=== PATIENT | male | born 1985 | race Caucasian/White ===

== ENCOUNTER 2016-10-18 22:12 | Emergency (ER) | payer SELFPAY ==
[~2016-10-18] VITALS: Ht 180.3 cm; Wt 87.1 kg
[~2016-10-18 22:12] MED LIST: Z.0.NO CURRENT MEDS
[2016-10-18 22:49] VITALS: BP 122/76; PULSE 68; RESP 18; TEMP 97.9; O2SAT 97
[2016-10-19] MEDS ORDERED: CYCL1TAB29 PO (11:37)
[2016-10-19] MEDS ORDERED: NAPR500T PO (11:37)
== END 2016-10-19 01:55 | disposition left against medical advice (07) ==
LOC: PHED 22:12
DX: M54.5 Low back pain (principal)
CPT/HCPCS: 99281

== ENCOUNTER 2016-10-19 11:06 | Emergency (ER) | payer SELFPAY ==
[~2016-10-19] VITALS: Ht 177.8 cm; Wt 86.5 kg
[2016-10-19 11:13] VITALS: BP 141/79; PULSE 67; RESP 18; TEMP 98.2; O2SAT 99
[2016-10-19] MEDS ORDERED: CYCL1TAB29 PO (11:37)
[2016-10-19] MEDS ORDERED: NAPR500T PO (11:37)
--- NOTE | 2016-10-19 11:39 | PD ---
HPI Chief Complaint: Back/ Neck Pain or Injury Time Seen by Provider: 11:37 Travel History International Travel<30 days: No Contact w/Intl Traveler<30days: No Traveled to known affect area: No History of Present Illness HPI 31-year-old male presents to the emergency department for evaluation of mid to lower back pain for 1 week. Patient states that one week ago he loaded plants from the ground onto his truck all day and the pain began the day after this activity. States that it is a muscle soreness that is aggravated with standing for long periods of time, bending and moving. States that he has been taking ibuprofen with minimal improvement of symptoms. He took one dose of Norflex that he had at home before he went to bed, is unsure whether this helped his symptoms are not. He states he has had some improvement in the pain however is concerned that it has persisted this long. He denies any numbness or tingling, weakness, saddle anesthesia, bowel or bladder incontinence, fever, chills, nausea, vomiting. No other complaints. PFSH Past Medical History Medical History: Denies Significant Hx Diminished Hearing: No Tetanus Vaccination: Unknown Influenza Vaccination: No Past Surgical History Surgical History: No Previous Surgery Social History Alcohol Use: Yes (weekends) Tobacco Use: No Substance Use: No Allergies-Medications (Allergen,Severity, Reaction): Coded Allergies: No Known Allergies (Verified , 10/19/16) Reported Meds & Prescriptions Reported Meds & Active Scripts Active Naproxen 500 Mg Tab 500 Mg PO BID 7 Days Flexeril (Cyclobenzaprine HCl) 10 Mg Tab 10 Mg PO TID 5 Days Review of Systems Except as stated in HPI: all other systems reviewed are Neg Physical Exam Narrative GENERAL: Well-nourished and well-developed pleasant male patient in no acute distress who is nontoxic appearing. SKIN: Warm and dry. HEAD: Normocephalic and atraumatic. EYES: No injection, drainage, or hyphema noted. PERRLA. EOMI. ENT: No nasal drainage noted. Oropharynx is clear. NECK: Supple and the trachea is midline. CARDIOVASCULAR: Regular rate and rhythm. RESPIRATORY: Breath sounds are equal bilaterally with no accessory muscle use, wheezing, rhonchi, or crackles. MUSCULOSKELETAL: No obvious deformities, swelling, cyanosis, or ecchymosis is present throughout the upper and lower extremities. Patient has full range of motion without any signs of neurovascular compromise. Strength 5/5 upper and lower extremities equal bilaterally. BACK: Tenderness to palpation of bilateral thoracic and lumbar paraspinal muscles. No midline spinous tenderness to palpation. NEUROLOGICAL: Awake, alert, and oriented. Normal speech and gait. Cranial nerves are grossly intact. Data Data Last Documented VS Vital Signs Date Time Temp Pulse Resp B/P Pulse Ox O2 Delivery O2 Flow Rate FiO2 10/19/16 11:13 98.2 67 18 141/79 99 MDM Medical Decision Making Medical Screen Exam Complete: Yes Emergency Medical Condition: Yes Differential Diagnosis Muscle strain versus muscle spasm versus discogenic pain Narrative Course 31-year-old male presents to the emergency department for evaluation of mid to lower back pain after lifting and bending last week. Patient is afebrile, vital signs are stable. No midline bony point tenderness. No traumatic injury. No focal neurologic deficits. I don't see any indication for imaging at this time. This is a muscle strain. Patient will be treated with muscle relaxers and NSAIDs. Advised follow-up with his PCP. Patient verbalizes understanding and agreement with treatment plan. Diagnosis Primary Impression: Muscle strain Referrals: Primary Care Physician Patient Instructions: General Instructions, Muscle Strain (ED) Additional Instructions: Take medications as prescribed with food and a full glass of water. Follow-up with your Primary Care Physician. Return to the ED for any acute worsening of symptoms. Med/Other Pt SpecificInfo: Prescription(s) given Scripts Naproxen 500 Mg [id number] Mg PO BID 7 Days Ref 0 Prov:Rogelio De Jesus MD 10/19/16 Cyclobenzaprine (Flexeril)10 Mg Tab10 Mg PO TID 5 Days Ref 0 Prov:Rogelio De Jesus MD 10/19/16 Disposition: 01 DISCHARGE HOME Condition: Stable Bernadine Christie Oct 19, 2016 11:39
== END 2016-10-19 11:51 | disposition home or self-care (01) ==
LOC: PHEFT 11:06
DX: T14.8 Other injury of unspecified body region (principal); X50.0XXA Overexertion from strenuous movement or load, initial encounter; Y93.H2 Activity, gardening and landscaping; Y92.414 Local residential or business street as the place of occurrence of the external cause; Y99.9 Unspecified external cause status
CPT/HCPCS: 99283